=== PATIENT | male | born 1995 | race Asian ===

== ENCOUNTER 2025-05-02 12:08 | Observation (INO) ==
[2025-05-02] MEDS ORDERED: ACETAMINOPHEN 325 MG TAB PO PRN ×2 (12:32→18:11)
--- NOTE | 2025-05-02 14:03 | Communication Note ---
Date of Service: May 02, 2025 Call taken from transfer center for patient Anabella Calvert 1995 from [facility]. Case discussed with Dr. Kam Perez. Patient with 1 day of right-sided abdominal pain CTA/P has been pushed our system, per their read this shows appendicitis with appendiceal diameter of 11 mm without abscess, phlegmon, or perforation. 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 Stable on Zosyn. Was recommended for surgical intervention, no surgery avai lable at [facility]. He is not toxic, is not septic, had not eaten, no barriers to immediate operative intervention he has no limiting comorbidities and has no other medical problems. He takes no chronic medications and has no allergies. Case was discussed with on-call surgery. Appropriate for transfer pending bed availability. 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 Was able to arrange a bed on 3 E. by report appropriate for medical surgical so was excepted. Preliminary lab orders were placed in anticipation of arrival Due to a delay in patient arrival did reach back out to [facility]. Patient had reportedly left [facility] at noon however did not arrive within an hour to [facility]. I did attempt to call the patient x 2 at the number provided by [facility] for the patient ([phone]). No voicemail set up and no answer at that line.
--- NOTE | 2025-05-02 14:44 | History & Physical Report ---
Date of Service May 02, 2025 Assessment & Plan (1) Acute appendicitis: Plan: Acute appendicitis 1 day of abdominal pain, nausea. Right lower quadrant pain starting to spread to left lower quadrant. Left lower quadrant pain resolved and right lower quadrant pain improving but not yet resolved on admitting reassessment. He has nontoxic and does not appear septic CTA/P performed at [facility]: Appendiceal diameter 11 mm. No perforation, abscess, or phlegmon Per outside labs: Leukocytosis of 13.09. Hemoglobin 15.7. Glucose 135. Sodium 140. Potassium 3.9. Creatinine 0.76. No transaminitis. Lipase is normal. No coags drawn, ordered. Last dose of Zosyn at [facility]. Not in paperwork --> called PH. Confirms 4.5g Zosyn given at 1134hours General Surgery consulted. Taken for lap appendectomy. - Pain adequately controlled preop. Will reassess postop for pain needs - Zofran q6h prn for nausea DVT prophylaxis: SCDs CODE STATUS: Full code Diet: N.p.o. History of Present Illness Primary Care Provider: NO PCP Mr. 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 He is seen at the bedside for being taking to surgical preop. He reports he has had 1 day of right lower quadrant abdominal pain which had started to spread to his left lower quadrant this morning. At time of bedside evaluation he reports his left-sided pain has actually completely resolved and the right sided pain is improving but still slightly tender. He is not sure if he has fevers he has not felt very feverish. He did have some nausea this morning. Denies chills. Has felt a little bit warm. He has not had anything to eat today. He had a few sips of water before 8 AM otherwise he has not had any other liquid intake and no liquid intake since 8 AM. He denies any other medical problems. He is able to walk normally and has no history of chest pain. Denies history of blood clots/DVT/PE. He does not use tobacco products He does not drink alcohol He denies any medication allergies He does not take any prescription medications No past surgeries He reports he has updated his family does not wish for any calls to surrogate decision makers to be made at this time. Full code Allergies Allergy/AdvReac Type Severity Reaction Status Date / Time No Known Allergies Allergy Unverified 05/02/25 15:11 Home Medications Medication Instructions Recorded Confirmed Type ondansetron 8 mg disintegrating 8 mg PO UD PRN n/v 05/02/25 05/02/25 History tablet Past Med/Surg History Problem List (Updated 05/02/25 @ 15:16 by Maverick Lewis MD) Encounter for pre-operative examination Acute appendicitis Medical History No pertinent past medical history Surgical History (Updated 05/02/25 @ 15:16 by Maverick Lewis MD) No pertinent past surgical history Social History Smoking Status: Never smoker Hx Alcohol Use: Yes Hx Substance Use: No Current Living Situation: Alone Feels Safe at Home: Yes Safety Concerns: Feels Safe At This Time Assistive Devices: Glasses and Hospital Bed Physical Exam Physical Exam: General: A&Ox3. NAD. Cooperative. Skin is warm and dry. Nontoxic-appearing HEENT: Atraumatic, normocephalic. Vision and hearing grossly intact. Pupils equal and reactive to light Pulm: CTAB A&P. -wheezes, -rales, -rhonchi. Symmetrical chest rise. No increased work of breathing. No respiratory distress. Cardiac: RRR, -mrg. Radial pulses intact and symmetrical. Abdominal: Right lower quadrant tenderness to palpation. No rebound or invol untary guarding. Previously reported left-sided tenderness resolved by time of exam Extremities: Warm, dry. No edema. Moves all extremities equally. Is able to walk and ambulate independently with no strength deficits PG Care Time/CCT Total # of Minutes Spent Total Time Spent with Patient: Total time spent is greater than 50% in coordination of care (as documented) at patient's floor/unit and/or counseling patient: Coding Level of Care Code 14320 INT INP/OBS CARE 2MIN Diagnoses Acute appendicitis K35.80
[2025-05-02 14:51] LABS: Hematocrit (blood only) 44.8 % (42.0-52.0); Hemoglobin 15.0 g/dL (14.0-18.0); Immature Granulocytes # (auto) 0.03 K/uL (0.01-0.20); Immature Granulocytes % (auto) 0.3 %; Mean Corpuscular Hemoglobin 28.5 pg (25.0-34.0); Mean Corpuscular Volume 85.2 fL (80.0-100.0); Platelet Count 247 K/uL (130-400); RDW Standard Deviation 37.6 fL (36.4-46.3); Red Blood Count 5.26 M/uL (4.70-6.10); White Blood Count 11.90 K/ul (4.8-10.8)
--- NOTE | 2025-05-02 15:03 | Surgery Consultation ---
Date of Consultation May 02, 2025 Assessment & Plan (1) Acute appendicitis: Anabella is a 29-year-old male with history, exam, and imaging, which was performed at [facility] ED, consistent with acute appendicitis. Vital signs are stable. He is afebrile. His last PO intake was some sips of water before 8AM. He denies previous abdominal surgeries. He denies any past cardiac or pulmonary history. Plan is for Laparoscopic Appendectomy, Possible Open Appendectomy in the OR today with Dr. Moore. Patient will be admitted by hospitalist service for overnight observation following surgery. Consent form to be signed by patient with Dr. Moore. Supervising Physician Co-Signing Physician Notes I personally saw and evaluated the patient with Marely Burk PA-C and agree with the assessment and plan. CT images and results were personally viewed interpreted by myself Is consistent with acute appendicitis Plan on a laparoscopic appendectomy, possible open Consent was obtained, risks discussed including bleeding, infection, abscess History of Present Illness Reason for Consultation: Acute appendicitis- patient accepted from [facility], ED Attending Physician: Judd Martin MD History of Present Illness 29-year-old male with one day history of abdominal pain with accompanied nausea. He states that the pain was initially fairly generalized and then localized to his right lower quadrant. He presented to [facility] Emergency Department in [place] for evaluation. Imaging at [facility] (CT of abdomen and pelvis shows evidence of acute appendicitis with appendix diameter measuring 11 mm without evidence of abscess formation or signs of perforation. Unfortunately, there is no surgical services available at [facility], so patient was accepted here. Currently, patient states that his pain is a 2/10. He was given a dose of Zosyn at [facility]. Anabella denies any history of cardiac or pulmonary issues. He denies any previous abdominal surgery. He does not take any daily medications and denies any known medication allergies. Allergies Allergy/AdvReac Type Severity Reaction Status Date / Time No Known Allergies Allergy Unverified 05/02/25 15:11 Home Medications Medication Instructions Recorded Confirmed Type ondansetron 8 mg disintegrating 8 mg PO UD PRN n/v 05/02/25 05/02/25 History tablet Patient History Medical History No pertinent past medical history Surgical History (Updated 05/02/25 @ 15:16 by Maverick Lewis MD) No pertinent past surgical history Social History Smoking Status: Never smoker Hx Alcohol Use: Yes Hx Substance Use: No Current Living Situation: Alone Feels Safe at Home: Yes Safety Concerns: Feels Safe At This Time Assistive Devices: Glasses and Hospital Bed Review of Systems Constitutional: as per Subjective / HPI; no fever and no chills Respiratory: no cough, no chest congestion, no dyspnea, no dyspnea on exertion and no wheezing Cardiovascular: no chest pain, no chest pain at rest, no chest pain with activity, no radiating jaw, neck or arm pain, no dyspnea, no dyspnea at rest, no dyspnea on exertion, no lightheadedness and no calf pain Gastrointestinal: + abdominal pain and + nausea; no vomiti ng Hematologic / Lymphatic: no easy bleeding, no easy bruising, no coagulopathy and no lymphadenopathy Physical Exam Constitutional: WD/WN, vitals as above Neck: normal visual inspection Respiratory: normal respiratory effort, lungs clear to auscultation Cardiovascular: RRR, no murmur, no edema Gastrointestinal (Abdomen): Percussion/Palpation: + abdomen tender (right lower quadrant), + guarding and abdomen soft; abdomen not rigid Psychiatric: A+Ox3, euthymic affect PG Care Time/CCT Total # of Minutes Spent Total Time Spent with Patient: Total time spent is greater than 50% in coordination of care (as documented) at patient's floor/unit and/or counseling patient: Coding Level of Care Code 62776 OFFICE CONSULT LVL Diagnoses Acute appendicitis K35.80
[2025-05-02 15:09] LABS: Alanine Aminotransferase 31.0 U/L (7-52); Albumin Globulin Ratio 1.9 (0.9-2); Albumin Level 4.9 gm/dl (3.4-5.0); Alkaline Phosphatase 53.0 U/L (34-104); Anion Gap 9.0 (3-11); Bilirubin,Total 0.7 mg/dl (0.2-1.0); Blood Urea Nitrogen 11.0 mg/dl (6-23); Calcium 9.5 mg/dl (8.6-10.3); Carbon Dioxide 26.0 mmol/L (21-32); Chloride 106.0 mmol/L (98-107); Creatinine Clr Calc Pharmacy 166.4 ml/min; Globulin 2.6 gm/dl (2.5-4.0); Glucose 112.0 mg/dl (70-99(Fasting)); Potassium 3.8 mmol/L (3.5-5.1); Sodium 141.0 mmol/L (136-145); Total Protein 7.5 gm/dl (6.0-8.3)
--- NOTE | 2025-05-02 15:16 | Anesthesiology Consultation ---
Date of Service May 02, 2025 Assessment & Plan (1) Encounter for pre-operative examination: Chart Review Chart Review: Acceptable Risk for Surgery History Surgery Operation Date: 05/02/25 15:00 Proposed Procedures p Laparoscopic Appendectomy - Americo Moore DO Height/Weight Height: 6 ft 0.05 in Weight: 90 kg Allergies Allergy/AdvReac Type Severity Reaction Status Date / Time No Known Allergies Allergy Unverified 05/02/25 15:11 Medications Home Medications Medication Instructions Recorded Confirmed Last Taken ondansetron 8 mg disintegrating 8 mg PO UD PRN n/v 05/02/25 05/02/25 Unknown tablet NPO Date Last Intake of Fluids: 05/02/25 Time Last Intake of Fluids: 08:00 Date Last Intake of Solids: 05/01/25 Time Last Intake of Solids: 21:00 Past Medical History Medical History No pertinent past medical history Past Surgical History Surgical History (Updated 05/02/25 @ 15:16 by Maverick Lewis MD) No pertinent past surgical history Social History Smoking Status: Never smoker Hx Alcohol Use: Yes alcohol intake frequency: holidays/special occasions only Hx Substance Use: No Physical Exam Vital Signs Last Vital Signs Temp 36.7 C 05/02/25 14:38 Pulse 92 H 05/02/25 14:38 Resp 16 05/02/25 14:38 BP 129/81 05/02/25 14:38 Pulse Ox 99 05/02/25 14:38 O2 Del Method Room Air 05/02/25 14:38 Testing Laboratory Results 05/02/25 14:38 05/02/25 14:38
[2025-05-02] MEDS ORDERED: ROCURONIUM BROMIDE 10 MG/ML 5 ML VIAL IV ONE (15:17)
[2025-05-02] MEDS ORDERED: LIDOCAINE 2% 2 ML VIAL/AMP(20MG/ML) INFIL ONE (15:17)
[2025-05-02] MEDS ORDERED: MIDAZOLAM HCL 1 MG/ML 2ML VIAL ONE (15:17)
[2025-05-02] MEDS ORDERED: PROPOFOL IV EMULSION 10 MG/ML 20 ML VIAL IV ONE (15:17)
[2025-05-02] MEDS ORDERED: DEXAMETHASONE SOD INJ 4 MG/ML VIAL ONE (15:19)
[2025-05-02] MEDS ORDERED: ONDANSETRON INJ 2 MG/ML 2 ML VIAL ONE (15:19)
[2025-05-02 15:58] LABS: INR 1.0 (0.9-1.1); Partial Thromboplastin Time 27 Seconds (21-31); Prothrombin Time 10.6 Seconds (9.0-12.0)
[2025-05-02] MEDS ORDERED: SUGAMMADEX SODIUM 200 MG/2 ML VIAL IV ONE ×2 (16:29→16:51)
[2025-05-02] MEDS: BUPIVACAINE/EPINEPHRINE 0.25% 1:200,000 30 ML VIAL ONE (16:29)
--- NOTE | 2025-05-02 16:36 | Post Operative Brief Note ---
PG Immediate Post Op with CF Date of Surgery May 02, 2025 Pre & Post Diagnosis Operation Date: 05/02/25 15:00 Pre-Op Diagnosis: Acute Appendicitis Post-Op Diagnosis: Acute Appendicitis without perforation I identified the patient and participated in the time-out.: Yes Procedure Operation Date: 05/02/25 15:00 Actual Procedures p Laparoscopic Appendectomy(Not Applicable) - Americo Moore DO Surgeon Americo Moore DO [employer] Marely Burk PA-C Estimated Blood Loss 5 Findings See Below Acute appendicitis without perforation Specimens Specimen Description: A. Appendix Drains Mayberry Catheter Anesthesia Type General Complications none Disposition Disposition: Recovery Room
--- NOTE | 2025-05-02 16:38 | Operative Report ---
PG Post Operative Report Pre & Post Diagnosis Operation Date: 05/02/25 15:00 Pre-Op Diagnosis: Acute Appendicitis Post-Op Diagnosis: Acute Appendicitis without perforation I identified the patient and participated in the time-out.: Yes Procedure Operation Date: 05/02/25 15:00 Actual Procedures p Laparoscopic Appendectomy(Not Applicable) - Americo Moore DO Surgeon Americo Moore DO [employer] Marely Burk PA-C Estimated Blood Loss 5 Findings See Below Acute appendicitis without perforation Specimens Appendix to pathology Drains None Anesthesia Type General Complications none Disposition Disposition: Recovery Room Indications 29-year-old male with acute appendicitis Description of Procedure The patient was brought to the OR and placed in the supine position and SCD's placed. At this time he underwent general endotracheal anesthesia without incident. At this time a Mayberry catheter was placed under sterile conditions. His abdomen was prepped and draped in the usual sterile fashion. He was given appropriate pre-operative antibiotics. A timeout was called, the procedure was verified as Laparoscopic appendectomy, possible open. Surgical, anesthesia and nursing teams agreed and the procedure was begun. After injection of 0.25% Marcaine with epinephrine, a supraumbilical incision was made using a #11 blade scalpel and carried down to the fascia with a hemostat. The abdomen was then elevated with towel clamps and entered using the Veress needle confirming position using the saline drop test. Pneumoperitoneum was established and 5mm trocar was placed. Laparoscope was introduced. No injury was seen from our entrance to the abdomen. At this time a 5mm suprapubic port and 12mm LLQ port were placed under direct visualization. The patient was placed in Trendelenburg and rotated to the left. At this time the appendix was visualized and the tip was freed and elevated toward the abdominal wall. The appendix appeared inflamed, dilated and edematous. A window was created in the mesoappendix at the base of the appendix. A 45mm sheridan load stapler was then fired across the base of the appendix which appeared healthy. The mesoappendix was then taken using Harmonic device. The appendix was then placed in an Endocatch bag and removed through the LLQ port site. Staple line was inspected and was intact. Hemostasis was complete. A small amount of purulent fluid was suctioned out of the RLQ and pelvis. At this point the omentum was placed over the staple line. The 12 mm port was then closed at the fascial level using a 0 Vicryl suture using the suture passer. All ports were removed under direct visualization and no bleeding was noted. The abdomen was desufflated and the skin was closed using 4-0 Monocryl in a subcuticular fashion. Sterile dressings were applied. Mayberry catheter was removed. The patient was then awakened from anesthesia having remained stable throughout the entire case and transported to PACU. All needle and sponge counts were correct x 2. The physician assistant account manager was present and scrubbed for the entire procedure. She was essential in positioning, prepping draping the patient, driving the laparoscope, closure of the incisions and placement of the dressings. I attest to the content of the Intraoperative Record and any orders documented therein. Any exceptions are noted below.
[2025-05-02] MEDS ORDERED: ATROPINE SULFATE 0.1 MG/ML 10ML SYR IV PRN (16:41)
[2025-05-02] MEDS ORDERED: ONDANSETRON INJ 2 MG/ML 2 ML VIAL IV PRN ×2 (16:41→18:11)
[2025-05-02] MEDS ORDERED: PROMETHAZINE HCL 6.25 MG in SODIUM CHLORIDE 0.9% 50 ML IV PRN (16:41)
--- NOTE | 2025-05-02 17:35 | Anesthesiology Progress Note ---
Date of Service May 02, 2025 Anesthesia Post Procedure Vital Signs Vital Signs: Temp Pulse Pulse Resp BP BP Pulse Ox 05/02/25 17:20 93 H 18 116/77 96 05/02/25 17:10 95 H 14 123/78 99 05/02/25 17:00 36.5 C 108 H 20 129/80 99 05/02/25 15:14 05/02/25 14:38 36.7 C 92 H 16 129/81 99 O2 Del Method O2 Flow Rate 05/02/25 17:20 Room Air 05/02/25 17:10 Oxymask 2 05/02/25 17:00 Oxymask 7 05/02/25 15:14 Room Air 05/02/25 14:38 Room Air Pain Intensity Abdomen: Pain Intensity: 3 Transfer of Care Handoff Completed per policy Notes Mental Status: alert / awake / arousable Patient Amnestic to Procedure: Yes Nausea / Vomiting: adequately controlled Pain: adequately controlled Airway Patency, RR, SpO2: stable & adequate BP & HR: stable & adequate Hydration State: stable & adequate Anesthetic Complications: no major complications apparent and see Notes below (spoke with Dr Martin about drug infiltration) Notes: pt feels well, strong, no pain - will keep on monitored bed over night to watch for signs of rocuronium being reabsorbed
[2025-05-02] MEDS ORDERED: MoRPHine SULFATE 4 MG/ML 1 ML CARP\\VIAL IV PRN ×2 (18:11)
[2025-05-02] MEDS: KETOROLAC 30 MG/ML VIAL IV PRN (18:25)
[2025-05-02] MEDS: LACTATED RINGER'S 1,000 ML IV SCH (18:28)
[2025-05-03 06:34] LABS: Hematocrit (blood only) 38.8 % (42.0-52.0); Hemoglobin 12.9 g/dL (14.0-18.0); Immature Granulocytes # (auto) 0.02 K/uL (0.01-0.20); Immature Granulocytes % (auto) 0.2 %; Mean Corpuscular Hemoglobin 28.7 pg (25.0-34.0); Mean Corpuscular Volume 86.4 fL (80.0-100.0); Platelet Count 248 K/uL (130-400); RDW Standard Deviation 38.6 fL (36.4-46.3); Red Blood Count 4.49 M/uL (4.70-6.10); White Blood Count 8.25 K/ul (4.8-10.8)
[2025-05-03 06:51] LABS: Anion Gap 7.0 (3-11); Blood Urea Nitrogen 12.0 mg/dl (6-23); Calcium 9.0 mg/dl (8.6-10.3); Carbon Dioxide 26.0 mmol/L (21-32); Chloride 106.0 mmol/L (98-107); Creatinine Clr Calc Pharmacy 203.1 ml/min; Glucose 126.0 mg/dl (70-99(Fasting)); Potassium 3.9 mmol/L (3.5-5.1); Sodium 139.0 mmol/L (136-145)
--- NOTE | 2025-05-03 07:18 | Discharge Summary ---
Discharge Summary Date of Service May 03, 2025 Principal Dx & Hospital Course #1 = Principal Diagnosis (1) Acute appendicitis: Acute appendicitis 1 day of abdominal pain, nausea. Right lower quadrant pain starting to spread to left lower quadrant. Left lower quadrant pain resolved and right lower quadrant pain improving but not yet resolved on admitting reassessment. He has nontoxic and does not appear septic CTA/P performed at [facility]: Appendiceal diameter 11 mm. No perforation, abscess, or phlegmon Per outside labs: Leukocytosis of 13.09. Hemoglobin 15.7. Glucose 135. Sodium 140. Potassium 3.9. Creatinine 0.76. No transaminitis. Lipase is normal. No coags drawn, ordered. Last dose of Zosyn at [facility]. Not in paperwork --> called PH. Confirms 4.5g Zosyn given at 1134hours General Surgery consulted. Taken for lap appendectomy. - Pain adequately controlled with Tylenol postop. Did not require narcotic adjuncts. Will use tylenol per package labelling, and keep oxycodone script as [id number] if needed No further antibiotics indicated post procedure. Received Zosyn preprocedure. He was watched overnight due to an infiltrated peripheral IV which had been used transiently for propofol/rocuronium. He did receive 2 doses of sugammadex perioperatively. He was observed overnight on end-tidal CO2 he had no symptoms of delayed medication resorption. Specifically no shortness of breath, numbness, tingling, weakness. Discharge to routine S and surgical follow-up. Admission HPI Per Admitting Provider Mr. Calvert Is a 29-year-old male [facility] [employer] who presented as a transfer from [facility] for acute appendicitis. He is seen at the bedside for being taking to surgical preop. He reports he has had 1 day of right lower quadrant abdominal pain which had started to spread to his left lower quadrant this morning. At time of bedside evaluation he reports his left-sided pain has actually completely resolved and the right sided pain is improving but still slightly tender. He is not sure if he has fevers he has not felt very feverish. He did have some nausea this morning. Denies chills. Has felt a little bit warm. He has not had anything to eat today. He had a few sips of water before 8 AM otherwise he has not had any other liquid intake and no liquid intake since 8 AM. He denies any other medical problems. He is able to walk normally and has no history of chest pain. Denies history of blood clots/DVT/PE. He does not use tobacco products He does not drink alcohol He denies any medication allergies He does not take any prescription medications No past surgeries He reports he has updated his family does not wish for any calls to surrogate decision makers to be made at this time. Full code Discharge Exam General: A&Ox3. NAD. Cooperative. HEENT: Atraumatic, normocephalic. Vision and hearing grossly intact. Pulm: CTAB A&P. -wheezes, -rales, -rhonchi. Symmetrical chest rise. No increased work of breathing. No respiratory distress. Cardiac: RRR, -mrg. Radial pulses intact and symmetrical. Abdominal: Minimally TTP at incision sites. No rebound/guarding. Abd soft. BS intact. Extremities: Warm, dry. No edema. L AC IV site without warmth, swelling, erythema, or infiltrate. Audit Spec strength 5/5. Sensation to soft touch intact in hands b/l to soft touch without deficit. Discharge Plan Discharge Items Patient Disposition: Home - Self-Care Reason For Visit: ACUTE APPENDICITIS Discharge Diagnosis: Acute Appendicitis Activity: Per Instructions section Non-emergency contact: Primary Care Provider and Surgeon Call non-emergency contact if: your pain is not controlled, your temperature is above 101.5, your wound has increased redness and your wound has increased drainage Follow-up/Referrals: Americo Moore DO [Physician] - (Please call to schedule a follow-up visit with Dr. Moore for 1-2 weeks after your surgery. ) PCP,NO [Primary Care Provider] - Diet: Regular Addtl Attending Provider Instructions: SPECIAL CARE INSTRUCTIONS: * You have skin glue, called Dermabond, over your incisions. You may shower with this on. Do NOT pick at this as it will start to fall off on its own within the next 7-10 days. * You may shower on 05/03/2025 . NO soaking in bath tubs, hot tubs, or pools for 2 weeks * No lifting greater than 10lbs. No exercise until cleared by surgeon. Light walking is accepted. * No driving while taking narcotic pain medication * No drinking alcohol while taking narcotic pain medication * May use Ibuprofen/Tylenol over the counter for pain as tolerated. Do not exceed 3grams of Tylenol per 24 hours * Expect some swelling and bruising. * Diet - resume your regular diet CALL YOUR DOCTOR IF: * Temperature above 101 degrees, nausea/vomiting, fever/chills * Pain not relieved by pain medicine ordered * There is increased drainage or redness from any incision * You have any unanswered questions or concerns [phone]. FOLLOW UP VISIT: If not already scheduled, please call the office for a follow-up visit. Office Pending Studies at Discharge: Yes Studies:: surgical pathology Stand-Alone Forms: My [facility] [employer], Smoking Cessation Medications and DC Order Prescriptions: New oxycodone-acetaminophen [Endocet] 5-325 mg tablet 1 tab PO Q4H PRN (Reason: pain) 3 Days Qty: 18 0RF Rx Instructions: Initial therapy. Continued ondansetron 8 mg tablet,disintegrating 8 mg PO UD PRN (Reason: n/v) Discharge Orders: Discharge Order (Routine); Ordered 05/03/25 Ordered By: Judd Martin Admission Data Admit Date/Time: 05/02/25 14:08 Attending Provider: Judd Martin Admit Provider: Judd Martin Primary Care Provider: PCP,NO Other Providers: Americo Moore Hospital Stay Data Consultations 05/02/25 12:32 Consult General Surgery Routine Procedures Performed Operation Date: 05/02/25 15:00 Actual Procedures p Laparoscopic Appendectomy(Not Applicable) - Americo Moore DO Pending Results Patient Have Any Pending Studies at Discharge: Yes Discharge Instructions Given to Patient (Per Discharging Provider) SPECIAL CARE INSTRUCTIONS: * You have skin glue, called Dermabond, over your incisions. You may shower with this on. Do NOT pick at this as it will start to fall off on its own within the next 7-10 days. * You may shower on 05/03/2025 . NO soaking in bath tubs, hot tubs, or pools for 2 weeks * No lifting greater than 10lbs. No exercise until cleared by surgeon. Light walking is accepted. * No driving while taking narcotic pain medication * No drinking alcohol while taking narcotic pain medication * May use Ibuprofen/Tylenol over the counter for pain as tolerated. Do not exceed 3grams of Tylenol per 24 hours * Expect some swelling and bruising. * Diet - resume your regular diet CALL YOUR DOCTOR IF: * Temperature above 101 degrees, nausea/vomiting, fever/chills * Pain not relieved by pain medicine ordered * There is increased drainage or redness from any incision * You have any unanswered questions or concerns [phone]. FOLLOW UP VISIT: If not already scheduled, please call the office for a follow-up visit. Office Total Time Total Time Spent Total Time Spent (In Minutes): Time spend day of discharge 25 minutes including direct patient care, documentation, review of labs and images, and coordination of care. Coding Level of Care Code 87276 IN/OBS DISCH 30 MIN/LESS Diagnoses Acute appendicitis K35.80
[2025-05-03 07:52] VITALS: RESP 19; TEMP 98.1; O2SAT 97
[2025-05-03 08:53] VITALS: BP 129/81; PULSE 92
--- NOTE | 2025-05-03 09:16 | Surgery Progress Note ---
Date of Service May 03, 2025 Assessment & Plan (1) S/P laparoscopic appendectomy: Plan: POD #1 s/p Laparoscopic Appendectomy. He is doing very well! He is ambulating in room, voiding without issue and tolerating regular diet. Surgical incisions are intact with Dermabond in place. He is ok for discharge to home today. Discharge instructions were reviewed. He is aware that he is to follow-up with Dr. Moore in clinic in 1-2 weeks. Return precautions reviewed. Pt seen and examined with Dr. Moore. Admission and Anticipated Discharge Date Admission Date: May 02, 2025 Subjective Pt is doing very well this morning- ambulating in room without issue. He reports that abdominal pain that initially brought him to the hospital has resolved. He is tolerating a regular diet and reports that pain is controlled. There was some difficulty obtaining IV access yesterday prior to surgery, but upper extremities are without pain and there is minimal swelling. Review of Systems Constitutional: as per Subjective / HPI; no fever and no chills Respiratory: no cough, no chest congestion and no dyspnea Cardiovascular: no chest pain, no chest pain at rest and no chest pain with activity Physical Exam Constitutional: WD/WN, vitals as above Gastrointestinal (Abdomen): Abdominal incisions are clean, dry, intact and well-approximated with Dermabond in place. No signs of infection. He is tender as incisions sites as expected. Musculoskeletal: no cyanosis or clubbing, extremities motor strength 5/5 Extremities: full ROM of extremities Results & Data Vital Signs (Past 12 Hours) Vital Signs Temp Pulse Pulse Pulse Resp BP BP 05/03/25 08:50 36.7 C 92 H 19 129/81 05/03/25 07:51 36.7 C 99 H 19 143/72 H 05/03/25 06:00 36.6 C 84 18 123/70 05/03/25 05:00 36.7 C 88 14 94/64 L 05/03/25 04:00 36.8 C 90 16 91/57 L 05/03/25 03:00 36.5 C 94 H 16 113/68 05/03/25 02:00 36.9 C 97 H 18 117/69 05/03/25 01:00 37.1 C 95 H 16 105/68 05/03/25 00:00 37 C 103 H 16 116/69 05/02/25 23:00 37.2 C 100 H 18 123/69 05/02/25 22:00 36.4 C L 106 H 16 110/69 05/02/25 21:37 104 H Pulse Ox O2 Del Method 05/03/25 08:50 97 05/03/25 07:51 97 Room Air 05/03/25 06:00 98 Room Air 05/03/25 05:00 96 Room Air 05/03/25 04:00 96 Room Air 05/03/25 03:00 95 Room Air 05/03/25 02:00 95 Room Air 05/03/25 01:00 94 Room Air 05/03/25 00:00 95 Room Air 05/02/25 23:00 95 Room Air 05/02/25 22:00 95 Room Air 05/02/25 21:37 PG Care Time/CCT Total # of Minutes Spent Total Time Spent with Patient: Total time spent is greater than 50% in coordination of care (as documented) at patient's floor/unit and/or counseling patient: Coding Level of Care Code 01662 Post Operative Follow-Up Diagnoses S/P laparoscopic appendectomy Z90.49
== END 2025-05-03 10:07 | disposition home or self-care (01) ==
LOC: 3E → 2E 18:10
DX: K35.80 Unspecified acute appendicitis